=== PATIENT | female | born 1950 | race Caucasian/White ===

== ENCOUNTER → 2020-01-31 | Outpatient (CLI) | payer MEDICARE | END | disposition home or self-care (01) | LOC: RAD 13:02 | PROVIDERS: ATTEND Physician Assistant | DX: R22.1 Localized swelling, mass and lump, neck (principal) | CPT/HCPCS: 76536 ==

== ENCOUNTER → 2020-02-16 | Outpatient (CLI) | payer MEDICARE | END | disposition home or self-care (01) | LOC: CFH 11:50 | PROVIDERS: ATTEND Nurse Practitioner Family | DX: N63.21 Unspecified lump in the left breast, upper outer quadrant (principal) | CPT/HCPCS: 76642; 77062; 77066; G0279 ==

== ENCOUNTER 2020-03-15 07:51 | Outpatient (CLI) | payer MEDICARE ==
[~2020-03-15 07:51] MED LIST: ALPR0.25 PO; ATOR10TA9 PO; CHOL10003 PO; CYCL5TAB PO; GABA300C PO; HYDR1TAB53 PO; NALO4SPR NAS
[2020-03-15] MEDS ORDERED: LIDOCAINE 1%, 20ML ONE (09:17)
[2020-03-15] MEDS ORDERED: LIDOCAINE 1%-EPI 1:100K, 20ML ONE (09:17)
[2020-03-15] MEDS ORDERED: SODIUM BICARBONATE 4.2%, 5ML ONE (09:17)
[2020-03-22] MEDS ORDERED: HYDR1TAB53 PO (16:11)
== END 2020-03-15 23:59 | disposition home or self-care (01) ==
LOC: CFH 07:51
PROVIDERS: ATTEND Nurse Practitioner Family
DX: C50.412 Malignant neoplasm of upper-outer quadrant of left female breast (principal); C96.9 Malignant neoplasm of lymphoid, hematopoietic and related tissue, unspecified; F17.210 Nicotine dependence, cigarettes, uncomplicated; Z79.899 Other long term (current) drug therapy
CPT/HCPCS: 19081; 19083; 19284; 38505; 76942; 88305; 88361; 77065; 77066

== ENCOUNTER 2020-03-16 08:08 | Outpatient (CLI) | payer MEDICARE ==
[2020-03-16] MEDS ORDERED: LIDOCAINE 1%, 20ML ONE (11:35)
[2020-03-16] MEDS ORDERED: LIDOCAINE 1%-EPI 1:100K, 20ML ONE (11:35)
[2020-03-16] MEDS ORDERED: SODIUM BICARBONATE 4.2%, 5ML ONE (11:35)
[2020-03-22] MEDS ORDERED: HYDR1TAB53 PO (16:11)
== END 2020-03-16 23:59 | disposition home or self-care (01) ==
LOC: CFH 08:08
PROVIDERS: ATTEND Nurse Practitioner Family
DX: R92.0 Mammographic microcalcification found on diagnostic imaging of breast (principal); D05.12 Intraductal carcinoma in situ of left breast; D05.11 Intraductal carcinoma in situ of right breast
CPT/HCPCS: 19081; 19082; 88305; 77065

== ENCOUNTER → 2020-03-24 | Outpatient (CLI) | payer MEDICARE ==
[~2020-03-24] MED LIST changes: +GADOTERATE 5 MMOL/10 ML VIAL ONE
== END | disposition home or self-care (01) ==
LOC: RAD 14:19
PROVIDERS: ATTEND Internal Medicine
DX: C4A.59 Merkel cell carcinoma of other part of trunk (principal); C34.90 Malignant neoplasm of unspecified part of unspecified bronchus or lung; C50.911 Malignant neoplasm of unspecified site of right female breast; M48.02 Spinal stenosis, cervical region; R22.1 Localized swelling, mass and lump, neck
CPT/HCPCS: 70553; 72156; A9575

== ENCOUNTER 2020-03-29 10:21 | Emergency (ER) | payer MEDICARE ==
[~2020-03-29] VITALS: Ht 152.4 cm; Wt 50.0 kg
[~2020-03-29 10:21] MED LIST changes: -GADOTERATE 5 MMOL/10 ML VIAL ONE
[2020-03-29] MEDS ORDERED: LIDOCAINE 1%, 10ML ONE (11:20)
[2020-03-29 11:29] LABS: ALANINE AMINOTRANSFERASE 26 U/L (12-78); ALBUMIN 2.5 g/dL (3.4-5.0); ANION GAP 7 mmol/L (5-15); CALCIUM 8.8 mg/dL (8.5-10.1); CHLORIDE 104 mmol/L (98-107); CREATININE 0.66 mg/dL (0.55-1.02)
[2020-03-29 11:34] LABS: ALKALINE PHOSPHATASE 121 U/L (45-117); BILIRUBIN,TOTAL 0.4 mg/dL (0.2-1.0); TOTAL PROTEIN 7.4 g/dL (6.4-8.2); TROPONIN I < 0.015 ng/mL (0.000-0.045)
--- NOTE | 2020-03-29 11:34 | NUR ---
This pt is coming from home for increasing SOB with exertion. Presents with "husbands" O2. RA sat in the 80s. Denies SOB while sitting in bed, or any other associated pain. 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 Pt is to start chem for R lung cancerous cells next week. Pt immediately placed on all monitors. MD Rojas at bedside. Daughter at bedside. Call light in reach. Bedrails up x2.
[2020-03-29 11:48] LABS: BASOPHILS % (AUTO) 0 % (0-1); EOSINOPHILS % (AUTO) 1 % (1-7); LYMPHOCYTES % (AUTO) 6 % (22-44); MEAN CORPUSCULAR HGB CONC 34.4 g/dL (32.4-35.8); MEAN PLATELET VOLUME 7.1 fL (7.4-10.4); MONOCYTES % (AUTO) 10 % (2-9); NEUTROPHILS % (AUTO) 83 % (42-75); PLATELET COUNT 464 x10^3/uL (130-400); RED BLOOD COUNT 3.38 x10^6/uL (3.82-5.3); RED CELL DISTRIBUTION WIDTH 12.3 % (9.6-15.2)
[2020-03-29 11:49] LABS: MD NO
--- NOTE | 2020-03-29 12:32 | NUR ---
Pt to IR now. JOSE.
--- NOTE | 2020-03-29 13:18 | NUR ---
BREAK RN: PT RTD FROM IR. VSS NOTED, LUNG SOUNDS TONEY & LLL CLEAR, RUL CLEAR, RML, RLL +FAINT CRACKLES. NAD NOTED AND PT RPTS SHE FEELS IT IS EASIER TO BREATHE. CALL LIGHT W/I REACH.
[2020-03-29 14:35] VITALS: BP 122/81
== END 2020-03-29 14:37 | disposition home or self-care (01) ==
LOC: ED 11:20
DX: R06.00 Dyspnea, unspecified (principal); J91.0 Malignant pleural effusion; Z85.118 Personal history of other malignant neoplasm of bronchus and lung
CPT/HCPCS: 32555; 36415; 71045; 80053; 82945; 83615; 83880; 84157; 84484; 85025; 87070; 87205; 89051; 93005; 99285; J3490

== ENCOUNTER 2020-08-17 13:00 | Outpatient (CLI) | payer MEDICARE ==
[2020-08-17] MEDS ORDERED: GADOTERATE 7.5 MMOL/15 ML VIAL ONE (14:00)
== END 2020-08-17 23:59 | disposition home or self-care (01) ==
LOC: CFH 13:00
PROVIDERS: ATTEND Internal Medicine
DX: C50.112 Malignant neoplasm of central portion of left female breast (principal); C34.12 Malignant neoplasm of upper lobe, left bronchus or lung; C50.911 Malignant neoplasm of unspecified site of right female breast; C50.912 Malignant neoplasm of unspecified site of left female breast; D70.1 Agranulocytosis secondary to cancer chemotherapy
CPT/HCPCS: 76642; 77049; 77062; 77066; A9575; C8937; C8908; G0279

== ENCOUNTER 2020-09-06 11:09 | Emergency (ER) | payer MEDICARE ==
[~2020-09-06] VITALS: Ht 152.4 cm; Wt 55.0 kg
--- NOTE | 2020-09-06 11:24 | NUR ---
[employer]: PT 73% RA, PT REPORTS HAS NOT BEEN GIVEN O2 BY PROVIDER BUT WEARS HUSBANDS O2 NEEDED. PLACED ON 4L NC W/ DESIRED EFFECT.
[2020-09-06 12:50] LABS: BASOPHILS % (AUTO) 0 % (0-1); EOSINOPHILS % (AUTO) 0 % (1-7); LYMPHOCYTES % (AUTO) 11 % (22-44); MEAN CORPUSCULAR HEMOGLOBIN 32.5 pg (27.0-34.8); MEAN CORPUSCULAR HGB CONC 34.5 g/dL (32.4-35.8); MEAN PLATELET VOLUME 7.2 fL (7.4-10.4); MONOCYTES % (AUTO) 7 % (2-9); NEUTROPHILS % (AUTO) 81 % (42-75); PLATELET COUNT 240 x10^3/uL (130-400); RED BLOOD COUNT 3.11 x10^6/uL (3.82-5.3); RED CELL DISTRIBUTION WIDTH 12.7 % (9.6-15.2)
[2020-09-06 12:59] LABS: ALANINE AMINOTRANSFERASE 14 U/L (12-78); ALBUMIN 3.3 g/dL (3.4-5.0); ANION GAP 4 mmol/L (5-15); CALCIUM 8.5 mg/dL (8.5-10.1); CHLORIDE 105 mmol/L (98-107); CREATININE 0.89 mg/dL (0.55-1.02)
[2020-09-06 13:01] LABS: ALKALINE PHOSPHATASE 86 U/L (45-117); BILIRUBIN,TOTAL 0.3 mg/dL (0.2-1.0); TOTAL PROTEIN 7.5 g/dL (6.4-8.2)
[2020-09-06] MEDS ORDERED: PROMETHAZINE 25 MG/ML, 1ML ONE (13:28)
[2020-09-06] MEDS ORDERED: HYDROcodone/APAP 5/325 TABLET ONE (13:29)
[2020-09-06] MEDS ORDERED: HYDROcodone/APAP 5/325 TABLET PO ONE (13:30)
[2020-09-06] MEDS ORDERED: PROMETHAZINE 25 MG/ML, 1ML IM ONE (13:30)
[2020-09-06] MEDS ORDERED: OMNIPAQUE 350 MG/ML, 75ML BOTTLE ONE (13:36)
[2020-09-06 14:46] LABS: MICROSCOPIC AUTO
--- NOTE | 2020-09-06 16:24 | NUR ---
[facility] called, they are working on the home o2 order for her.
[2020-09-06 19:11] VITALS: BP 141/98
--- NOTE | 2020-09-06 19:12 | NUR ---
Patient/family member given discharge instructions and they have confirmed that they understand the instructions. Patient ambulatory with steady gait but opted for wheelchair for dc. NAD, all questions answered appropriately, denies additional needs at this time. No personal belongings left in room after discharge.
== END 2020-09-06 19:13 | disposition home or self-care (01) ==
LOC: ED 13:00
DX: J96.91 Respiratory failure, unspecified with hypoxia (principal); R51.9 Headache, unspecified; C79.31 Secondary malignant neoplasm of brain; F17.210 Nicotine dependence, cigarettes, uncomplicated
CPT/HCPCS: 36415; 71275; 80053; 81001; 83690; 85025; 87077; 87086; 87147; 87186; 96372; 99285; J2550; Q9967

== ENCOUNTER → 2020-09-13 | Outpatient (CLI) | payer MEDICARE ==
[~2020-09-13] MED LIST changes: +DEXA4TAB66 PO; +LEVE500T53 PO
== END | disposition home or self-care (01) ==
LOC: ROC 08:22
PROVIDERS: ATTEND Radiology Radiation Oncology
DX: Z08 Encounter for follow-up examination after completed treatment for malignant neoplasm (principal); C79.31 Secondary malignant neoplasm of brain; E78.5 Hyperlipidemia, unspecified; I50.30 Unspecified diastolic (congestive) heart failure; R11.2 Nausea with vomiting, unspecified; Z85.841 Personal history of malignant neoplasm of brain; Z85.3 Personal history of malignant neoplasm of breast; Z85.118 Personal history of other malignant neoplasm of bronchus and lung
CPT/HCPCS: 99213; G0463

== ENCOUNTER 2020-10-11 20:31 | Inpatient (IN) | payer MEDICARE ==
[~2020-10-11] VITALS: Ht 162.6 cm; Wt 53.6 kg
[2020-10-11 20:53] LABS: BASOPHILS % (AUTO) 0 % (0-1); EOSINOPHILS % (AUTO) 0 % (1-7); LYMPHOCYTES % (AUTO) 9 % (22-44); MEAN CORPUSCULAR HEMOGLOBIN 30.4 pg (27.0-34.8); MEAN CORPUSCULAR HGB CONC 33.8 g/dL (32.4-35.8); MEAN PLATELET VOLUME 7.3 fL (7.4-10.4); MONOCYTES % (AUTO) 3 % (2-9); NEUTROPHILS % (AUTO) 88 % (42-75); PLATELET COUNT 157 x10^3/uL (130-400); RED BLOOD COUNT 4.17 x10^6/uL (3.82-5.3)
[2020-10-11] MEDS ORDERED: SODIUM CHLORIDE FLUSH 10ML SYR IVF ONE (21:00)
[2020-10-11 21:06] LABS: ALANINE AMINOTRANSFERASE 24 U/L (12-78); ALBUMIN 2.7 g/dL (3.4-5.0); ANION GAP 8 mmol/L (5-15); CALCIUM 8.1 mg/dL (8.5-10.1); CHLORIDE 101 mmol/L (98-107); CREATININE 0.88 mg/dL (0.55-1.02)
[2020-10-11 21:10] LABS: ALKALINE PHOSPHATASE 66 U/L (45-117); BILIRUBIN,TOTAL 0.2 mg/dL (0.2-1.0); TOTAL PROTEIN 6.4 g/dL (6.4-8.2)
--- NOTE | 2020-10-11 21:34 | NUR ---
CTA DELAY, WAITING FOR IV.
--- NOTE | 2020-10-11 21:48 | NUR ---
RN TO BEDSIDE FOR EKG AT THIS TIME, PT WENT INTO AFIB RVR ERP NOTIFIED, TO GIVE 10MG OF CARDIZEM IV PUSH. Addendum: 10/11/20 at 2314 by [email or web address] PT HR [id number] ERP NOTIFIED
[2020-10-11] MEDS ORDERED: DILTIAZEM 5 MG/ML, 5ML ONE ×2 (22:10→22:52)
--- NOTE | 2020-10-11 22:15 | NUR ---
ERP TO BEDSIDE
[2020-10-11] MEDS ORDERED: ETOMIDATE 20 MG/10 ML ONE (22:26)
[2020-10-11] MEDS ORDERED: DIGOXIN 0.25 MG/ML, 2ML ONE (22:37)
--- NOTE | 2020-10-11 22:40 | NUR ---
PER ERP PT TO GET 0.5MG OF DIGOXIN IV PUSH AT THIS TIME
--- NOTE | 2020-10-11 22:45 | NUR ---
ERP TO BEDSIDE FOR CARDIOVERSION AT THIS TIME, CONSENT SIGNED. PER PT CONVERSATION WITH ERP, PT TO BE FULL CODE. Addendum: 10/11/20 at 2312 by [email or web address] ERP GAVE 5MG OF ETOMIDATE FOR CARDIOVERSION
--- NOTE | 2020-10-11 22:49 | NUR ---
PER ERP PT TO GET 10MG CARDIZEM IV AT THIS TIME
--- NOTE | 2020-10-11 22:54 | NUR ---
PER ERP PT BP IMPROVED ENOUGH TO GIVE ANOTHER 10MG OF CARDIZEM IV PUSH AT THIS TIME
--- NOTE | 2020-10-11 23:14 | NUR ---
PT NOW AWAKE INTERACTING WITH STAFF
--- NOTE | 2020-10-11 23:36 | NUR ---
ADDITIONAL 10 OF CARDIZEM GIVEN PER ERP.
[2020-10-12] VITALS (7 sets, daily range): BP systolic 90–109; BP diastolic 52–73
[2020-10-12] MEDS ORDERED: DILTIAZEM 5 MG/ML, 5ML IV ONE
[2020-10-12] MEDS ORDERED: PIPERACILLIN/TAZO 3.375 GM in DEXTROSE 5% 50 ML IVPB ONE
--- NOTE | 2020-10-12 | NUR ---
DILT GTT STARTED AT THIS TIME
--- NOTE | 2020-10-12 00:51 | NUR ---
20GLAC established for CTA.
--- NOTE | 2020-10-12 01:00 | NUR ---
bedside report to Andriy bustosapplications intern of care at this time
[2020-10-12] MEDS ORDERED: OMNIPAQUE 350 MG/ML, 75ML BOTTLE ONE (01:02)
--- NOTE | 2020-10-12 01:09 | NUR ---
Hospitalist at bedside. Pt 20GLAC infiltrated during CT scan. Removed at this time. Additional 22GIV Lhand established.
[2020-10-12] MEDS ORDERED: ACETAMINOPHEN 325 MG TABLET PO PRN (01:30)
[2020-10-12] MEDS ORDERED: morphine SULFATE 10 MG/ML, 1ML IVPush PRN (01:30)
[2020-10-12] MEDS ORDERED: LABETALOL 5MG/ML, 20ML IVPush PRN (01:30)
[2020-10-12] MEDS ORDERED: DILTIAZEM 5 MG/ML, 5ML IVPush PRN (01:30)
--- NOTE | 2020-10-12 01:51 | NUR ---
PT HR UP TO 170'S SUSTAINING 150'S ERP NOTIFIED VERBAL ORDER TO TITRATE DILT GTT UP TO 15ML/HR AT THIS TIME
--- NOTE | 2020-10-12 01:57 | NUR ---
Assisted pt to bedside commode. Able to stand and pivot.
[2020-10-12] MEDS ORDERED: FUROSEMIDE 20 MG/2 ML IV ONE (03:00)
[2020-10-12] MEDS ORDERED: POTASSIUM CHLORIDE 20 MEQ TAB.ER.PRT PO ONE (03:00)
[2020-10-12] MEDS ORDERED: ALBUTEROL SULFATE 2.5 MG/3 ML NPPB PRN (03:00)
[2020-10-12] MEDS ORDERED: DILTIAZEM 125 MG in SODIUM CHLORIDE 0.9% 100 ML IV SCH ×2 (03:00)
[2020-10-12] MEDS ORDERED: POTASSIUM CHLORIDE 20 MEQ in SODIUM CHLORIDE 0.9% 250 ML IV ONE (05:30)
[2020-10-12] MEDS ORDERED: DEXAMETHASONE 1 MG TABLET PO SCH (07:30)
[2020-10-12] MEDS: LEVETIRACETAM 500 MG TABLET PO SCH ×2 (08:49→21:36)
[2020-10-12] MEDS: GABAPENTIN 300 MG CAPSULE PO SCH ×3 (08:49→21:36)
[2020-10-12] MEDS: SENNA/DOCUSATE TABLET PO SCH (08:49)
[2020-10-12] MEDS: CHOLECALCIFEROL 1,000 UNIT TABLET PO SCH (08:49)
[2020-10-12] MEDS: PIPERACILLIN/TAZO 3.375 GM in DEXTROSE 5% 50 ML IV SCH ×4 (08:51→21:37)
[2020-10-12] MEDS: HYDROcodone/APAP 10/325 MG TABLET PO PRN (18:45)
[2020-10-12] MEDS: ATORVASTATIN 10 MG TABLET PO SCH (21:37)
[2020-10-13 00:35] VITALS: BP 95/60
[2020-10-13] MEDS ORDERED: DILTIAZEM 125 MG in SODIUM CHLORIDE 0.9% 100 ML IV SCH ×2 (03:00→11:00)
[2020-10-13 03:55] LABS: BASOPHILS % (AUTO) 1 % (0-1); EOSINOPHILS % (AUTO) 0 % (1-7); LYMPHOCYTES % (AUTO) 10 % (22-44); MEAN CORPUSCULAR HEMOGLOBIN 30.6 pg (27.0-34.8); MEAN CORPUSCULAR HGB CONC 34.2 g/dL (32.4-35.8); MEAN PLATELET VOLUME 6.9 fL (7.4-10.4); MONOCYTES % (AUTO) 5 % (2-9); NEUTROPHILS % (AUTO) 84 % (42-75); PLATELET COUNT 124 x10^3/uL (130-400); RED BLOOD COUNT 3.77 x10^6/uL (3.82-5.3); RED CELL DISTRIBUTION WIDTH 14.2 % (9.6-15.2)
[2020-10-13] MEDS: PIPERACILLIN/TAZO 3.375 GM in DEXTROSE 5% 50 ML IV SCH ×4 (04:14→21:14)
[2020-10-13 06:19] VITALS: BP 110/78
[2020-10-13 06:25] LABS: ANION GAP 7 mmol/L (5-15); CALCIUM 8.5 mg/dL (8.5-10.1); CHLORIDE 107 mmol/L (98-107); CREATININE 0.69 mg/dL (0.55-1.02)
[2020-10-13 06:30] LABS: TROPONIN I 0.128 ng/mL (0.000-0.045)
[2020-10-13] MEDS: SENNA/DOCUSATE TABLET PO SCH (09:06)
[2020-10-13] MEDS: GABAPENTIN 300 MG CAPSULE PO SCH ×3 (09:06→21:00)
[2020-10-13] MEDS: LEVETIRACETAM 500 MG TABLET PO SCH ×2 (09:06→21:00)
[2020-10-13] MEDS: CHOLECALCIFEROL 1,000 UNIT TABLET PO SCH (09:06)
[2020-10-13 10:38] VITALS: BP 84/65
[2020-10-13] MEDS ORDERED: DIGOXIN 0.25 MG/ML, 2ML ONE (10:38)
[2020-10-13] MEDS ORDERED: AMIODARONE 150 MG in DEXTROSE 5% 100 ML IV ONE ×2 (11:00→14:30)
[2020-10-13] MEDS ORDERED: SODIUM CHLORIDE 0.9%, 500ML IVBOLUS ONE ×2 (11:00→14:00)
[2020-10-13] MEDS ORDERED: DIGOXIN 0.25 MG/ML, 2ML IVPush ONE (11:00)
[2020-10-13] MEDS: ONDANSETRON 2MG/ML, 2ML IVPush PRN (11:16)
[2020-10-13] MEDS: AMIODARONE 450 MG in DEXTROSE 5% 241 ML IV PRN ×2 (11:17→19:26)
[2020-10-13] MEDS: HYDROcodone/APAP 10/325 MG TABLET PO PRN (11:26)
[2020-10-13 12:21] VITALS: BP 165/81
[2020-10-13] MEDS ORDERED: ICN morphine 0.25 MG/ML IV IV PRN (13:00)
[2020-10-13] MEDS: PROCHLORPERAZINE 5 MG/ML, 2ML IV PRN ×2 (13:23→21:15)
[2020-10-13] MEDS ORDERED: POTASSIUM CHLORIDE 20 MEQ TAB.ER.PRT PO ONE (15:00)
[2020-10-13] MEDS ORDERED: DEXA4TAB66 PO (18:31)
[2020-10-13] MEDS: FILTER 0.22 MICRON IV PRN (19:24)
[2020-10-13] MEDS: ATORVASTATIN 10 MG TABLET PO SCH (21:00)
[2020-10-13 21:27] VITALS: BP 109/73
[2020-10-14 01:43] VITALS: BP 130/89
[2020-10-14] MEDS ORDERED: DILTIAZEM 125 MG in SODIUM CHLORIDE 0.9% 100 ML IV SCH (03:00)
[2020-10-14] MEDS: PIPERACILLIN/TAZO 3.375 GM in DEXTROSE 5% 50 ML IV SCH ×4 (03:15→23:30)
[2020-10-14 05:16] LABS: BASOPHILS % (AUTO) 0 % (0-1); EOSINOPHILS % (AUTO) 0 % (1-7); LYMPHOCYTES % (AUTO) 7 % (22-44); MEAN CORPUSCULAR HEMOGLOBIN 30.7 pg (27.0-34.8); MEAN CORPUSCULAR HGB CONC 33.7 g/dL (32.4-35.8); MEAN PLATELET VOLUME 7.6 fL (7.4-10.4); MONOCYTES % (AUTO) 4 % (2-9); NEUTROPHILS % (AUTO) 89 % (42-75); PLATELET COUNT 73 x10^3/uL (130-400); RED BLOOD COUNT 4.02 x10^6/uL (3.82-5.3); RED CELL DISTRIBUTION WIDTH 14.3 % (9.6-15.2)
[2020-10-14 05:24] LABS: CHLORIDE 104 mmol/L (98-107)
[2020-10-14 05:35] LABS: ANION GAP 12 mmol/L (5-15); CREATININE 0.66 mg/dL (0.55-1.02)
[2020-10-14] MEDS: PROCHLORPERAZINE 5 MG/ML, 2ML IV PRN (06:18)
[2020-10-14 07:46] VITALS: BP 103/73
[2020-10-14] MEDS: SENNA/DOCUSATE TABLET PO SCH (07:46)
[2020-10-14] MEDS: GABAPENTIN 300 MG CAPSULE PO SCH ×3 (09:00→20:57)
[2020-10-14] MEDS ORDERED: LEVETIRACETAM 100 MG/ML, 5ML IVPush SCH (09:00)
[2020-10-14] MEDS: LEVETIRACETAM 500 MG TABLET PO SCH ×2 (09:00→20:58)
[2020-10-14] MEDS: CHOLECALCIFEROL 1,000 UNIT TABLET PO SCH (09:00)
[2020-10-14] MEDS: LEVETIRACETAM 500 MG in SODIUM CHLORIDE 0.9% 100 ML IV SCH ×2 (09:04→20:44)
[2020-10-14] MEDS: DIGOXIN 0.25 MG/ML, 2ML IVPush SCH (09:04)
[2020-10-14] MEDS ORDERED: POTASSIUM CHLORIDE 20 MEQ TAB.ER.PRT PO ONE (09:30)
[2020-10-14] MEDS ORDERED: POTASSIUM CHLORIDE 40 MEQ in SODIUM CHLORIDE 0.9% 500 ML IV ONE (10:00)
[2020-10-14] MEDS: ONDANSETRON 2MG/ML, 2ML IVPush PRN ×2 (11:04→23:32)
[2020-10-14 13:10] VITALS: BP 131/76
[2020-10-14] MEDS ORDERED: ACET500C28 PO (14:05)
[2020-10-14] MEDS ORDERED: BRIM5DRO2 EACHEYE (14:06)
[2020-10-14] MEDS ORDERED: LATA5DRO EACHEYE (14:09)
[2020-10-14] MEDS ORDERED: DORZ10DR27 RIGHTEYE (14:09)
[2020-10-14] MEDS: AMIODARONE 450 MG in DEXTROSE 5% 241 ML IV PRN (15:45)
[2020-10-14] MEDS ORDERED: COMBIGAN RIGHTEYE SCH (16:00)
[2020-10-14] MEDS: DORZOLAMIDE 2% RIGHTEYE SCH ×2 (16:00→21:00)
[2020-10-14] MEDS ORDERED: VYZULTA RIGHTEYE SCH (16:00)
[2020-10-14] MEDS: FILTER 0.22 MICRON IV PRN (16:58)
[2020-10-14] MEDS ORDERED: LIDOCAINE 1%, 10ML ONE (17:38)
[2020-10-14] MEDS: ATORVASTATIN 10 MG TABLET PO SCH (20:56)
[2020-10-14] MEDS ORDERED: LATANOPROSTENE BUNOD RIGHTEYE SCH (21:00)
[2020-10-14 21:32] VITALS: BP 135/85
[2020-10-15 00:21] VITALS: BP 126/72
[2020-10-15] MEDS ORDERED: AMIODARONE 150 MG in DEXTROSE 5% 100 ML IV ONE (05:00)
[2020-10-15] MEDS: PIPERACILLIN/TAZO 3.375 GM in DEXTROSE 5% 50 ML IV SCH ×2 (05:34→11:30)
[2020-10-15 06:22] LABS: BASOPHILS % (AUTO) 0 % (0-1); EOSINOPHILS % (AUTO) 0 % (1-7); LYMPHOCYTES % (AUTO) 10 % (22-44); MEAN CORPUSCULAR HEMOGLOBIN 30.8 pg (27.0-34.8); MEAN CORPUSCULAR HGB CONC 34.5 g/dL (32.4-35.8); MEAN PLATELET VOLUME 7.3 fL (7.4-10.4); MONOCYTES % (AUTO) 4 % (2-9); NEUTROPHILS % (AUTO) 86 % (42-75); PLATELET COUNT 129 x10^3/uL (130-400); RED BLOOD COUNT 3.61 x10^6/uL (3.82-5.3); RED CELL DISTRIBUTION WIDTH 14.7 % (9.6-15.2)
[2020-10-15 06:52] LABS: CHLORIDE 110 mmol/L (98-107)
[2020-10-15 07:01] LABS: ALKALINE PHOSPHATASE 66 U/L (45-117); ANION GAP 9 mmol/L (5-15); BILIRUBIN,TOTAL 0.3 mg/dL (0.2-1.0); CALCIUM 7.9 mg/dL (8.5-10.1); CREATININE 0.47 mg/dL (0.55-1.02); TOTAL PROTEIN 5.4 g/dL (6.4-8.2); TROPONIN I 0.154 ng/mL (0.000-0.045)
[2020-10-15 07:03] LABS: ALANINE AMINOTRANSFERASE 28 U/L (12-78)
[2020-10-15 07:40] VITALS: BP 136/82
[2020-10-15] MEDS: LEVETIRACETAM 500 MG in SODIUM CHLORIDE 0.9% 100 ML IV SCH (08:52)
[2020-10-15] MEDS: GABAPENTIN 300 MG CAPSULE PO SCH (08:58)
[2020-10-15] MEDS: SENNA/DOCUSATE TABLET PO SCH (08:58)
[2020-10-15] MEDS: CHOLECALCIFEROL 1,000 UNIT TABLET PO SCH (08:59)
[2020-10-15] MEDS: DORZOLAMIDE 2% RIGHTEYE SCH (09:00)
[2020-10-15] MEDS ORDERED: ASCORBIC ACID 500 MG TABLET PO SCH (09:00)
[2020-10-15] MEDS ORDERED: DEXAMETHASONE 4 MG/ML, 1ML IVPush SCH (09:00)
[2020-10-15] MEDS ORDERED: THIAMINE 100MG TABLET PO SCH (09:00)
[2020-10-15] MEDS ORDERED: POTASSIUM CHLORIDE 20 MEQ TAB.ER.PRT PO SCH (09:00)
[2020-10-15] MEDS: LEVETIRACETAM 500 MG TABLET PO SCH (09:00)
[2020-10-15] MEDS ORDERED: CHOLECALCIFEROL 5,000u TAB PO SCH (09:00)
[2020-10-15] MEDS ORDERED: ZINC SULFATE 220 MG CAPSULE PO SCH (09:00)
[2020-10-15] MEDS ORDERED: COMBIGAN RIGHTEYE SCH (09:00)
[2020-10-15] MEDS: DIGOXIN 0.25 MG/ML, 2ML IVPush SCH (09:01)
[2020-10-15] MEDS ORDERED: AMIODARONE 200 MG TABLET PO SCH (10:30)
[2020-10-15] MEDS ORDERED: LORA-446 PO (10:57)
[2020-10-15] MEDS ORDERED: AMIO200T42 PO (10:57)
[2020-10-15] MEDS ORDERED: AMOX1TAB12 PO (10:57)
[2020-10-15 11:50] VITALS: BP 136/78
[2020-10-15 12:46] VITALS: BP 132/83
[2020-10-15] MEDS ORDERED: MELATONIN 5 MG TABLET PO SCH (21:00)
== END 2020-10-15 13:17 | disposition hospice, home (50) | DRG 177 ==
LOC: ED 20:52 → EDIP 10-12 00:08 → 5SO 10-12 02:17
PROVIDERS: ADMIT Family Medicine; ATTEND Family Medicine
PROC: 5A2204Z Restoration of Cardiac Rhythm, Single (ICD-10-PCS; principal; 2020-10-12)
PROC: 0W9B3ZZ Drainage of Left Pleural Cavity, Percutaneous Approach (ICD-10-PCS; 2020-10-14)
DX: U07.1 COVID-19 (principal); I21.4 Non-ST elevation (NSTEMI) myocardial infarction; E43 Unspecified severe protein-calorie malnutrition; J12.82 Pneumonia due to coronavirus disease 2019; J96.21 Acute and chronic respiratory failure with hypoxia; E87.1 Hypo-osmolality and hyponatremia; C79.31 Secondary malignant neoplasm of brain; D68.69 Other thrombophilia; C43.9 Malignant melanoma of skin, unspecified; D69.6 Thrombocytopenia, unspecified; E78.5 Hyperlipidemia, unspecified; E87.6 Hypokalemia; G89.3 Neoplasm related pain (acute) (chronic); H21.01 Hyphema, right eye; I11.0 Hypertensive heart disease with heart failure; I48.0 Paroxysmal atrial fibrillation; I95.9 Hypotension, unspecified; R73.9 Hyperglycemia, unspecified; I50.9 Heart failure, unspecified; Z80.1 Family history of malignant neoplasm of trachea, bronchus and lung; Z80.3 Family history of malignant neoplasm of breast; Z68.20 Body mass index [BMI] 20.0-20.9, adult; Z80.8 Family history of malignant neoplasm of other organs or systems; Z85.118 Personal history of other malignant neoplasm of bronchus and lung; Z85.3 Personal history of malignant neoplasm of breast; Z85.820 Personal history of malignant melanoma of skin; Z87.891 Personal history of nicotine dependence
CPT/HCPCS: 32555; 36415; 71045; 71275; 80048; 80053; 82042; 83036; 83605; 83615; 83735; 83880; 84100; 84145; 84157; 84443; 84484; 85025; 87040; 87070; 87075; 87205; 88112; 88305; 89051; 92960; 93005; 93306; 96374; 96375; 99152; 99292; G0378; J1100; J1953; J2405; J2543; J3480; J7060; Q9967; U0005; J0282; J0780; J1160; J1940; J2270; J7040; J7050; U0003